=== PATIENT | male | born 1950 | race African-American/Black ===

== ENCOUNTER 2019-03-06 16:47 | Emergency (ER) | payer MEDICARE, MEDICAID ==
[~2019-03-06] VITALS: Ht 185.4 cm; Wt 90.0 kg
[~2019-03-06 16:47] MED LIST: ANTIHYPERTENSIVE; BENADRYL 50MG C50 MG OR; CEPHALEXIN500 M1 PO; COMBIVIR 1501 COMBO PO; DICLOFENAC75 MG PO; LAMIVUDINE PO; MEDDOSEPAK OR; NAPROXEN500 MG PO; SUSTIVA600 MG PO; TAGAMET300 MG OR; WARFARIN SODIUM5 MG PO; XARELTO10 MG PO; [UNRECOGNIZED DRUG - OTHER] PO
[2019-03-06 17:48] LABS: IMMATURE GRANULOCYTES 0.4 % (0.0-5.0); MEAN CELL VOLUME 113.6 fL CALC (80.0-100.0); MEAN CORPUSCULAR HGB 40.2 pG CALC (26.0-32.0); MEAN CORPUSCULAR HGB CONC 35.4 g/L CALC (32.0-36.0); NEUT# 6.89 thou/uL (1.82-7.42); RED BLOOD COUNT 3.91 mill/uL (4.70-6.10); RED CELL DISTRI WIDTH 13.1 % (11.5-15.5)
[2019-03-06 17:51] LABS: HEMATOCRIT 44.4 % (39.0-50.0); HEMOGLOBIN 15.7 g/dl (14.0-18.0)
[2019-03-06 18:02] LABS: ALBUMIN 4.8 g/dL (3.2-5.0); ALKALINE PHOSPHATASE 86 u/l (38-126); ANION GAP 15 (6-22 (CALC)); BUN 22 mg/dL (8-23); BUN/CREATININE RATIO 22 (12-20 (CALC)); CARBON DIOXIDE 24 mmol/l (22-30); CHLORIDE 102 mmol/l (95-108); GFR > 60 ML/MIN (>=60 (CALC)); GFR FOR AFR.AMER. > 60 ML/MIN (>=60 (CALC)); LIPASE 145 u/l (23-300); POTASSIUM 4.5 mmol/l (3.5-5.1); SGOT/AST 34 u/l (19-48); SODIUM 137 mmol/l (137-146); TOTAL PROTEIN 8.2 g/dL (6.3-8.2)
[2019-03-06 18:03] LABS: BILIRUBIN, TOTAL 0.6 mg/dL (0.0-1.4)
[2019-03-06] MEDS ORDERED: PREVACID30 M3 PO (21:27)
[2019-03-06] MEDS ORDERED: ZOFRAN ODT4 MG PO (21:27)
[2019-03-06 21:40] VITALS: BP 109/65
== END 2019-03-06 21:40 | disposition home or self-care (01) ==
LOC: ED 16:47
DX: K29.70 Gastritis, unspecified, without bleeding (principal); F17.200 Nicotine dependence, unspecified, uncomplicated; Z21 Asymptomatic human immunodeficiency virus [HIV] infection status; R94.31 Abnormal electrocardiogram [ECG] [EKG]; R11.2 Nausea with vomiting, unspecified
CPT/HCPCS: Q9967